=== PATIENT | female | born 1995 | race Caucasian/White ===

== ENCOUNTER 2017-01-29 11:44 | Emergency (ER) | payer BC, OTHER ==
[2017-01-29 11:51] VITALS: BP 127/75; PULSE 92; RESP 18; TEMP 98.2; O2SAT 96
[2017-01-29] MEDS ORDERED: IBUPROFEN 600 MG TAB PO ONE (12:20)
[2017-01-29] MEDS ORDERED: CEPHALEXIN 500 MG CAP PO ONE (12:42)
--- NOTE | 2017-01-29 12:45 | EDPHY ---
H & P Time Seen by Provider: 01/29/17 12:09 HPI/ROS: This patient complains of dysuria frequency and urgency. She explains that the urgency and frequency came on yesterday evening she started with mild dysuria today. She also complains of right flank pain. She states that this is 4/10 intensity achy and sharp in nature slightly worse when she bends forward. She states this feels both similar to prior muscle strains and also similar to prior kidney infection. She is worried about pyelonephritis and came in for evaluation. 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 Her father drove her here by private vehicle for further evaluation of her symptoms. ROS: Constitutional: No high fevers or chills. No significant fatigue. HEENT: No complaints line pulmonary: No complaints line cardiovascular: She felt dizzy earlier when she felt anxious but that has since resolved. GI: No nausea or vomiting : Last menstrual period 8 weeks or so-irregular. She stop taking her oral contraceptives at the beginning of December 1 month ago due to her irregular menses. No significant vaginal discharge. No genital lesions. No hematuria noted 7 point ROS is otherwise negative. Past Medical/Surgical History: history of pyelonephritis October of 2015 Smoking Status: Never smoked Physical Exam: General Appearance: Pleasant well-developed well-nourished 21-year-old female Alert, no distress. Eyes: Pupils equal and round no pallor or injection. ENT, Mouth: Mucous membranes moist. Respiratory: There are no retractions, lungs are clear to auscultation. Cardiovascular: Regular rate and rhythm. Gastrointestinal: Abdomen is soft and nontender except for minimal suprapubic and right upper quadrant tenderness. No organomegaly. No guarding or rebound. no masses, bowel sounds normal. Back: Right-sided muscular tenderness in the paraspinous region versus CVA tenderness. Patient is having increased pain with forward flexion. She retains good range of motion. Straight leg raise is negative. Neurological: GCS 15 with no focal deficits. Skin: Warm and dry, no rashes. Musculoskeletal: Neck is supple nontender. Extremities are symmetrical, full range of motion. Psychiatric: Mood and affect normal DIFFERENTIAL DIAGNOSIS: After history and physical exam differential diagnosis was considered for cystitis, early pyelonephritis, lumbar back strain, ureteral stone, Constitutional: Initial Vital Signs Temperature (C) 36.8 C 01/29/17 11:48 Heart Rate 92 01/29/17 11:48 Respiratory Rate 18 01/29/17 11:48 Blood Pressure 127/75 H 01/29/17 11:48 O2 Sat (%) 96 01/29/17 11:48 O2 Delivery Mode Room Air Allergies/Adverse Reactions: No Known Allergies Allergy (Unverified 01/29/17 11:51) Home Medications: Medication Instructions Recorded Cephalexin [Keflex (*)] 500 mg PO TID #21 cap 01/29/17 Phenazopyridine HCl [Pyridium 200 mg PO TID PRN #6 tab 01/29/17 200mg (RX)] MDM/Departure - MDM Diagnostics: Urinalysis reveals prominent RBCs with WBCs at lower number-3-5 some bacteria, positive leuk Estrace. test is negative Medications Given: Discontinued Medications Cephalexin HCl (Keflex) 500 mg PO EDNOW ONE PRN Reason: Protocol Stop: 01/29/17 12:43 Last Admin: 01/29/17 12:54 Dose: 500 mg Ibuprofen (Motrin) 600 mg PO EDNOW ONE Stop: 01/29/17 12:21 Last Admin: 01/29/17 12:28 Dose: 600 mg ED Course/Re-evaluation: Ibuprofen with improvement in the patient's flank pain. Keflex p. o. I counseled her regarding UTI. Discussion: I think this patient's symptoms are attributable to cystitis with early right kidney involvement. I counseled regarding this. She appears clinically well without evidence of sepsis. We ruled out with a negative test. I explained her that differential diagnosis also could include low back strain with cystitis or even a ureteral stone. Patient understands the plan to start Keflex antibiotic drink plenty fluids which resulted improvement. She will return should she develop any significant worsening of her symptoms despite the treatment plan - Depart Disposition: Home, Routine, Self-Care Clinical Impression: Flank pain, acute Urinary tract infection Qualifiers: Urinary tract infection type: acute cystitis Hematuria presence: with hematuria Qualified Code(s): N30.01 - Acute cystitis with hematuria Condition: Good Instructions: Urinary Tract Infection in Women (ED), Flank Pain (ED) Additional Instructions: Diagnoses: 1. Urinary tract infection 2. Flank pain Plan: Drink plenty fluids [id number] mg per 6 hours as needed for pain Tylenol in addition if needed Keflex antibiotic as prescribed Return for any significant worsening despite the treatment plan. Prescriptions: Cephalexin [Keflex (*)] 500 mg PO TID #21 cap Phenazopyridine HCl [Pyridium 200mg (RX)] 200 mg PO TID PRN #6 tab PRN Reason: dysuria Referrals: NONE *PRIMARY CARE P,. [Primary Care Provider] - As per Instructions Anamaria Thomas MD [Medical Doctor] - As per Instructions
== END 2017-01-29 13:05 | disposition home or self-care (01) ==
LOC: CED 11:44
DX: N30.01 Acute cystitis with hematuria (principal); B96.89 Other specified bacterial agents as the cause of diseases classified elsewhere
CPT/HCPCS: 81003-PO; 81015-PO; 81025-PO